=== PATIENT | male | born 1955 | race Caucasian/White ===

== ENCOUNTER → 2017-10-05 09:12 | Outpatient (CLI) | payer BC, SELFPAY ==
[2017-10-05 09:42] LABS: Abs Immature Grans 0.02 k/cumm (0.0-0.09); Absolute Basophil Count 0.04 k/cumm (0.0-0.2); Absolute Eosinophil Count 0.19 k/cumm (0.0-0.7); Absolute Monocyte Count 0.73 k/cumm (0.11-0.7); Basophils % 0.4; HCT 47.4 % (40.0-50.0); HGB 16.2 g/dL (13.5-17.5); Immature Grans % 0.2; Lymphocytes % 21.6; Mean Corp. HGB Concentration 34.2 g/dL (32.0-36.0); Mean Corpuscular Hemoglobin 29.8 pg (27.0-33.0); Mean Corpuscular Volume 87.1 fL (80-95); Mean Platelet Volume 10.1 fL (8.0-11.0); Monocytes % 7.9; Neutrophils % 67.9; Platelet Count 207 x1000/uL (130-400); RBC 5.44 m/cumm (4.50-6.00); RBC Distribution Width 13.7 % (11.8-14.1); White Blood Cell Count 9.28 k/cumm (4.4-10.8)
[2017-10-05 11:25] LABS: ALT 20 U/L (12-78); AST 25 U/L (15-37); Albumin 4.1 g/dL (3.4-5.0); Alkaline Phosphatase 83 U/L (46-116); Anion Gap 9.9 mmol/L (3-11); BUN 18 mg/dL (7-18); Bilirubin, Total 0.3 mg/dL (0.2-1.0); CO2 26.1 mmol/L (21.0-32.0); CREATININE 1.04 mg/dL (0.70-1.30); Calcium 8.9 mg/dL (8.5-10.1); Chloride 104 mmol/L (98-107); Glucose 103 mg/dL (70-100); Sodium 140 mmol/L (136-145); Total Protein 7.3 g/dL (6.4-8.2)
[2017-10-06 14:21] LABS: HCV RNA Detection Quantitative Undetected IU/mL (UNDECT)
== END ==
PROVIDERS: PCP Family Medicine; Visit Provider Physician Assistant Medical
DX: B18.2 Chronic viral hepatitis C (principal)
CPT/HCPCS: 36415; 80053; 85025; 87522

== ENCOUNTER 2017-12-21 10:03 | Outpatient (CLI) | payer BC, SELFPAY ==
[2017-12-21 10:24] LABS: Abs Immature Grans 0.01 k/cumm (0.0-0.09); Absolute Basophil Count 0.05 k/cumm (0.0-0.2); Absolute Eosinophil Count 0.16 k/cumm (0.0-0.7); Absolute Monocyte Count 0.78 k/cumm (0.11-0.7); Absolute Neutrophil Count 7.19 k/cumm (1.2-6.7); Basophils % 0.5; Eosinophils % 1.5; Immature Grans % 0.1; Lymphocytes % 21.2; Mean Corpuscular Hemoglobin 29.8 pg (27.0-33.0); Mean Corpuscular Volume 87.5 fL (80-95); Mean Platelet Volume 9.8 fL (8.0-11.0); Monocytes % 7.5; Neutrophils % 69.2; Platelet Count 236 x1000/uL (130-400); RBC 5.37 m/cumm (4.50-6.00); RBC Distribution Width 14.6 % (11.8-14.1); White Blood Cell Count 10.39 k/cumm (4.4-10.8)
[2017-12-21 13:24] LABS: ALT 24 U/L (12-78); AST 16 U/L (15-37); Albumin 3.8 g/dL (3.4-5.0); Alkaline Phosphatase 88 U/L (46-116); Anion Gap 7.1 mmol/L (3-11); BUN 21 mg/dL (7-18); Bilirubin, Total 0.3 mg/dL (0.2-1.0); CO2 28.9 mmol/L (21.0-32.0); CREATININE 0.96 mg/dL (0.70-1.30); Calcium 8.8 mg/dL (8.5-10.1); Chloride 103 mmol/L (98-107); Glucose 94 mg/dL (70-100); Potassium 4.3 mmol/L (3.5-5.1); Sodium 139 mmol/L (136-145)
[2017-12-22 15:23] LABS: HCV RNA Detection Quantitative Undetected IU/mL (UNDECT)
== END 2017-12-21 10:23 ==
PROVIDERS: PCP Family Medicine; Visit Provider Physician Assistant Medical
DX: B18.2 Chronic viral hepatitis C (principal)
CPT/HCPCS: 36415; 80053; 85025; 87522

== ENCOUNTER 2018-04-19 01:03 | Outpatient (CLI) | payer BC, SELFPAY ==
--- NOTE | 2018-04-19 07:45 | DI.US_ITS ---
SYMPTOM/DIAGNOSIS: LIVER FIBROSIS, K74.0, H/O HEP C, TREATED, Z86.19, HCC SCREENING ABDOMEN ULTRASOUND: Routine examination. No priors for comparison. The aorta and IVC are unremarkable. The liver measures 18.3 cm. in length. There is diffuse increased echogenicity of the liver consistent with hepatic steatosis. No hepatic mass is seen. No stones are seen in the gallbladder. There is no biliary ductal dilatation. The common duct is with normal limits at .3 cm. There is no pericholecystic fluid, sludge or gallbladder wall thickening. There is a 0.5 cm., immobile focus along the wall of the gallbladder likely reflecting a gallbladder polyp. The pancreas tail was not visualized. The remainder of the pancreas is unremarkable. The spleen measures 9.4 cm. long. No acute abnormality is identified. The kidneys are normal in size. No solid renal mass or calculus is identified. There is mild dilatation of the renal pelves bilaterally. No free fluid is seen in the abdomen. IMPRESSION: 1. Hepatomegaly and hepatic steatosis. 2. 0.5 cm. probable gallbladder polyp. 3. Mild dilatation of the renal pelves bilaterally. These may represent prominent extrarenal pelves versus hydronephrosis. Please correlate clinically.
== END 2018-04-19 01:23 ==
PROVIDERS: PCP Family Medicine; Visit Provider Internal Medicine Gastroenterology
DX: K74.0 Hepatic fibrosis (principal); R16.2 Hepatomegaly with splenomegaly, not elsewhere classified; K76.0 Fatty (change of) liver, not elsewhere classified; K82.4 Cholesterolosis of gallbladder; Z86.19 Personal history of other infectious and parasitic diseases
CPT/HCPCS: 76700

== ENCOUNTER 2020-09-18 03:28 | Outpatient (CLI) | payer BC, SELFPAY ==
[2020-09-18 07:58] LABS: Abs Immature Grans 0.03 10^3/uL (0.0-0.06); Absolute Basophil Count 0.08 10^3/uL (0.0-0.2); Absolute Eosinophil Count 0.13 10^3/uL (0.0-0.7); Absolute Lymphocyte Count 1.77 10^3/uL (1.2-3.4); Absolute Monocyte Count 0.85 10^3/uL (0.1-0.8); Absolute Neutrophil Count 7.82 10^3/uL (1.2-6.7); Basophils % 0.7; Eosinophils % 1.2; HCT 45.8 % (40.0-50.0); Immature Grans % 0.3; Lymphocytes % 16.6; MCH 28.3 pg (27.0-33.0); MCHC 32.8 % (32.0-36.0); MCV 86.4 fL (80-95); MPV 9.3 fL (8.0-11.0); Neutrophils % 73.2; Nucleated RBC 0 %; Platelet Count 271 10^3/uL (130-400); RDW 13.8 % (11.8-14.1); RDW-SD 44.2 fL; WBC 10.68 10^3/uL (4.4-10.8)
[2020-09-18 09:30] LABS: ALT 23 U/L (16-63); AST 18 U/L (15-37); Alkaline Phosphatase 90 U/L (46-116); BUN 21 mg/dL (7-18); Bilirubin, Total 0.3 mg/dL (0.2-1.0); Calcium 8.8 mg/dL (8.5-10.1); Calculated LDL 135 mg/dL (<100); Chloride 104 mmol/L (98-107); Cholesterol 200 mg/dL (<200); Glucose 102 mg/dL (74-106); HDL Cholesterol 50 mg/dL (40-60); Potassium 4.2 mmol/L (3.5-5.1); Sodium 141 mmol/L (136-145); Total Protein 7.4 g/dL (6.4-8.2); Triglyceride 75 mg/dL (<150)
== END 2020-09-18 03:29 | disposition home or self-care (01) ==
PROVIDERS: PCP Family Medicine; Visit Provider Internal Medicine Gastroenterology
DX: E78.5 Hyperlipidemia, unspecified (principal); K75.81 Nonalcoholic steatohepatitis (NASH)
CPT/HCPCS: 36415; 80053; 80061; 85025

== ENCOUNTER 2021-09-03 04:05 | Outpatient (CLI) | payer BC, SELFPAY ==
[2021-09-03 15:04] LABS: Abs Immature Grans 0.04 10^3/uL (0.0-0.06); Absolute Basophil Count 0.07 10^3/uL (0.0-0.2); Absolute Eosinophil Count 0.17 10^3/uL (0.0-0.7); Absolute Lymphocyte Count 2.09 10^3/uL (1.2-3.4); Absolute Monocyte Count 0.86 10^3/uL (0.1-0.8); Absolute Neutrophil Count 7.78 10^3/uL (1.2-6.7); Basophils % 0.6; Eosinophils % 1.5; HCT 42.3 % (40.0-50.0); HGB 14.2 g/dL (13.5-17.5); Immature Grans % 0.4; MCH 28.6 pg (27.0-33.0); MCHC 33.6 % (32.0-36.0); MCV 85 fL (80-95); MPV 9.5 fL (8.0-11.0); Monocytes % 7.8; Neutrophils % 70.7; Platelet Count 252 10^3/uL (130-400); RBC 4.96 10^6/uL (4.36-5.78); RDW 13.8 % (11.8-14.1); RDW-SD 42.9 fL; WBC 11.01 10^3/uL (4.4-10.8)
[2021-09-03 15:52] LABS: ALT 33 U/L (16-63); AST 19 U/L (15-37); Albumin 3.7 g/dL (3.4-5.0); Alkaline Phosphatase 85 U/L (46-116); Anion Gap 9.8 mmol/L (3-11); BUN 23 mg/dL (7-18); Bilirubin, Total 0.2 mg/dL (0.2-1.0); CO2 24.2 mmol/L (21.0-32.0); CREATININE 1.1 mg/dL (0.70-1.30); Calcium 8.7 mg/dL (8.5-10.1); Chloride 105 mmol/L (98-107); Glucose 108 mg/dL (74-106); Potassium 3.5 mmol/L (3.5-5.1); Sodium 139 mmol/L (136-145); Total Protein 7.4 g/dL (6.4-8.2)
== END 2021-09-03 04:06 | disposition home or self-care (01) ==
LOC: LBO 04:06
PROVIDERS: PCP Family Medicine; Visit Provider Physician Assistant Medical
DX: K76.0 Fatty (change of) liver, not elsewhere classified (principal)
CPT/HCPCS: 36415; 80053; 85025

== ENCOUNTER 2021-11-09 08:08 | Emergency (ER) | payer BC, SELFPAY ==
[2021-11-09 08:12] VITALS: BP 190/117; PULSE 96; RESP 18; TEMP 36.8; O2SAT 99
--- NOTE | 2021-11-09 09:14 | ED.GENADUL_ITS ---
Discharge Plan Disposition Patient Disposition: HOME Condition: Stable Discharge Details Clinical Impression: Laceration of thumb with damage to nail Primary Care Provider: Cony Wang ED Provider: Yao Valadez Home Meds and New Rx's Prescriptions: Continued amlodipine 5 mg tablet 1 tab PO DAILY Label Comments: TAKE ONE TABLET BY MOUTH EVERY MORNING omeprazole 20 mg capsule,delayed release(DR/EC) 1 cap PO DAILY Label Comments: TAKE ONE CAPSULE BY MOUTH EVERY DAY Discharge Instructions Instructions: Laceration (ED) Additional Instructions: Watch for any signs of infection and return immediately to the emergency department if these occur. Otherwise keep dressing in place for the next 24-48 hours and then keep wound clean and dry. Return to the emergency department 10 days for suture removal. It was also noted that your blood pressure was elevated today. Please take medication as prescribed and if your blood pressure remains elevated please follow-up with your primary care provider for reassessment. Stand Alone Forms: Work Release Referrals: Cony Wang [Primary Care Provider] - (As needed for reassessment) Discharge Data Discharge Date/Time-TO BE ENTERED AT DEPARTURE: 11/09/21 09:24 Medical Decision Making Patient presenting to the emergency department for chief complaint of left thumb laceration. He states that he was working with his bow when the string struck his left thumb just below the nail. Patient denies any other injury or trauma. Physical exam shows a 2 cm laceration just proximal to the visible nail. Exam is otherwise unremarkable. Please see procedure note for wound repair. Did inform patient that there was high likelihood of damage to the nail along with the nail root and that the nail may have abnormality or loss due to injury. Patient to watch for any signs of infection and return if needed otherwise patient will return in 10 days for suture removal. Patient was made aware of elevated blood pressure. He states that he had not taken his medication this morning and that he would take it when he gets home. He was encouraged to continue to monitor his blood pressure and if remains elevated after medication to follow-up with primary care provider. After discussion of diagnosis and plan of care patient has no further needs, questions, or concerns and states clear understanding to return to the emergency department for any worsening symptoms. This documentation was generated using [employer] system, please disregard any oddities of phrase or misspellings. HPI General Mode of arrival: ambulatory . Date/Time Provider Initiated Documentation: 11/09/21 08:17 . Limitations to Documentation: no limitations . Information obtained by: patient and RN notes reviewed . History of Present Illness 66 year old M presents to the emergency department with the chief complaint of Left thumb laceration, described as moderate, with intensity rated at 7. Quality is described as aching, and is localized to the left and upper extremity. Patient reports no radiation. Patient started experiencing this hour(s) (<1) and it has been constant. No relieving factors improve symptom(s), No exacerbating factors reported . Patient notes no other symptoms.. Patient did receive the following treatments prior to arrival, none Related Data Home Medications Medication Instructions Recorded Confirmed amlodipine 5 mg tablet 1 tab PO DAILY 11/09/21 11/09/21 omeprazole 20 mg capsule,delayed 1 cap PO DAILY 11/09/21 11/09/21 release Allergies Allergy/AdvReac Type Severity Reaction Status Date / Time No Known Allergies Allergy Unverified 11/09/21 08:19 General Stated Complaint: Laceration SUNSHINE: 4 Review of Systems Narrative: 6 systems reviewed and unremarkable except what is marked below. Musculoskeletal Musculoskeletal: Denies limited range of motion, Denies numbness and Denies tingling Integumentary/Breasts Skin/Breast: Reports as per HPI and Denies erythema Neurologic Neurologic: Denies numbness and Denies tingling PFSH All Active Problems (Updated 11/09/21 @ 09:19 by Yao Valadez NP) Hypertension (Chronic) Laceration of thumb with damage to nail (Acute) Social History Smoking/Tobacco Use Status: Current every day Tobacco Type: cigarettes Smoking risk assessment performed?: Yes Alcohol Intake: current Alcohol Intake frequency: holidays/special occasions only Drug use: Never Substance use type: does not use Do you feel safe at home: Yes Do you feel safe in your relationship?: Yes Exam Const General: cooperative, no acute distress and not ill appearing Orientation: alert, awake and oriented x3 Resp Effort & Inspection: normal respiratory effort, able to speak in complete sentences and no respiratory distress Skin Lesions: no lesions Rashes: no rashes Trauma: laceration Neuro General: patient alert, patient awake, patient oriented x3, moves all extremities and no focal motor deficits Sensory Exam: no sensory deficits noted Extrem General: normal exam except as noted Left upper extremity: hand Details: normal capillary refill, neuromotor exam normal, neurosensory exam normal and laceration thumb dorsal aspect distal Details: linear, irregular, actively bleeding, superficial, with motor nerve function intact and with sensation intact Course Vital Signs Vital signs: Vital Signs Temperature 36.8 C 11/09/21 08:12 Pulse 96 H 11/09/21 08:12 Respiratory Rate 18 11/09/21 08:12 Blood Pressure 190/117 H 11/09/21 08:12 Pulse Oximetry 99 11/09/21 08:12 Temperature 36.8 C 11/09/21 08:12 Temperature Source Skin 11/09/21 08:12 Pulse 96 H 11/09/21 08:12 Respiratory Rate 18 11/09/21 08:12 Respiratory Effort Non-Labored 11/09/21 08:16 Blood Pressure 190/117 H 11/09/21 08:12 Blood Pressure Position Sitting 11/09/21 08:12 Pulse Oximetry 99 11/09/21 08:12 Oxygen Delivery Method Room Air 11/09/21 08:12 Oxygen Flow Rate 0 11/09/21 08:12 Pain Level 7 11/09/21 08:12 Procedures Laceration Laceration 1: Site: hand Side (If applicable): left Description: linear, clean and other (At nail base) Local Anesthetic: Lidocaine 1% Amount of anesthesia used (mL): 4 Pre-repair: wound explored, irrigated extensively and deep structures intact Skin layer closed with: other (Prolene) Size (cm): 4-0 Number of sutures: 2 Technique: simple, interrupted
[2021-11-09 09:25] VITALS: BP 190/117; PULSE 96; RESP 18; TEMP 36.8; O2SAT 99
== END 2021-11-09 09:24 | disposition home or self-care (01) ==
PROVIDERS: Emergency Provider Nurse Practitioner Family; PCP Family Medicine
DX: S61.112A Laceration without foreign body of left thumb with damage to nail, initial encounter (principal); W22.8XXA Striking against or struck by other objects, initial encounter; Y93.89 Activity, other specified; I10 Essential (primary) hypertension; Z23 Encounter for immunization; F17.210 Nicotine dependence, cigarettes, uncomplicated
CPT/HCPCS: 12001; 90471; 99281; 99282